=== PATIENT | female | born 1980 | race Asian ===

== ENCOUNTER 2020-02-21 11:34 | Day surgery (SDC) | payer BC ==
[2020-02-20 09:36] VITALS: BMI 18.0
[2020-02-21] MEDS ORDERED: ROCURONIUM BROMIDE 50 MG/5 ML SYRINGE ONE ×2 (12:57→15:18)
[2020-02-21] MEDS ORDERED: PROPOFOL 20 ML ONE (12:57)
[2020-02-21] MEDS ORDERED: fentaNYL CITRATE 250 MCG/5 ML VIAL ONE (12:57)
[2020-02-21] MEDS ORDERED: MIDAZOLAM HCL 2 MG/2 ML SINGLE DOSE VIAL ONE (12:57)
[2020-02-21] MEDS ORDERED: BUPIVACAINE HCL/PF 2.5 MG/ML - 30 ML VIAL IJ ONE (13:06)
[2020-02-21] MEDS ORDERED: SODIUM CHLORIDE 0.9% P/F 10 ML VIAL IJ ONE (13:06)
[2020-02-21] MEDS ORDERED: BUPIVACAINE LIPOSOME/PF (EXPAREL) 266 MG/20 ML VIAL ONE (13:06)
[2020-02-21] MEDS ORDERED: ceFAZolin SODIUM 1 GM VIAL ONE ×3 (13:50→16:55)
[2020-02-21] MEDS ORDERED: DEXAMETHASONE SOD PHOSPHATE 4 MG/1 ML VIAL ONE (13:50)
[2020-02-21] MEDS ORDERED: ONDANSETRON 4 MG/2 ML VIAL ONE ×2 (13:50→17:50)
[2020-02-21] MEDS ORDERED: HYDROmorphone HCL/PF 1 MG/ML VIAL ONE (13:56)
[2020-02-21] MEDS ORDERED: GENTAMICIN SO4 80 MG/2 ML VIAL ONE ×2 (14:01→16:55)
[2020-02-21] MEDS ORDERED: ZOLPIDEM TARTRATE 5 MG TABLET PO PRN (15:34)
[2020-02-21] MEDS ORDERED: ACETAMINOPHEN 325 MG TABLET (FP) PO PRN (15:34)
[2020-02-21] MEDS ORDERED: ePHEDrine SULFATE 50 MG/1 ML AMPULE ONE (16:05)
[2020-02-21] MEDS ORDERED: NITROGLYCERIN 2% OINTMENT - 1GM PACKET TD ONE (18:06)
[2020-02-21] MEDS ORDERED: NEOSTIGMINE METHYLSULFATE 0.5 MG/ML - 10 ML MDV ONE (18:10)
[2020-02-21] MEDS ORDERED: ONDANSETRON 4 MG/2 ML VIAL IVPUSH PRN (18:29)
[2020-02-21] MEDS ORDERED: PROMETHAZINE HCL 25 MG/1 ML VIAL IVPUSH PRN (18:29)
[2020-02-21] MEDS ORDERED: LACTATED RINGERS SOLUTION 1,000 ML IV SCH (18:30)
[2020-02-21] MEDS: ACETAMINOPHEN 1000 MG/100 ML VIAL (NON FORMULARY) IVPB ONE (19:00)
[2020-02-21] MEDS ORDERED: ACETAMINOPHEN INJECTION 100 ML IVPB ONE (19:02)
[2020-02-21] MEDS: CEFAZOLIN 1 GM/D5W 1 GM/50 ML BAG IVPB SCH (20:30)
[2020-02-21] MEDS: DEXTROSE 5%-0.45% SALINE 1,000 ML IV SCH (20:31)
[2020-02-22] MEDS: CEFAZOLIN 1 GM/D5W 1 GM/50 ML BAG IVPB SCH ×3 (01:22→14:45)
[2020-02-22] MEDS: oxyCODONE HCL 5 MG TABLET PO PRN ×2 (01:59→06:18)
[2020-02-22] MEDS: ONDANSETRON 4 MG/2 ML VIAL IVPUSH PRN ×2 (05:27→09:39)
[2020-02-22 07:41] LABS: HEMATOCRIT 29.2 % (32.4-45.2); HEMOGLOBIN 10.1 GM/dl (10.7-15.3); MCH 31.8 pg (25.7-33.7); MCHC 34.4 g/dl (32.0-36.0); MEAN CELL VOLUME 92.2 fl (80-96); MEAN PLT VOLUME 7.1 fl (7.5-11.1); PLATELET COUNT 293 K/MM3 (134-434); RBC 3.17 M/mm3 (3.60-5.2); RDW 11.6 % (11.6-15.6); WHITE BLOOD COUNT 10.1 K/mm3 (4.0-10.8)
[2020-02-22] MEDS: ACETAMINOPHEN 1000 MG/100 ML VIAL (NON FORMULARY) IVPB ONE (08:38)
[2020-02-22 14:04] VITALS: BP 108/73; PULSE 88; TEMP 99.3
[2020-02-22] MEDS: DEXTROSE 5%-0.45% SALINE 1,000 ML IV SCH (14:50)
== END 2020-02-22 16:12 | disposition home or self-care (01) ==
LOC: FASUSAT 11:34 → EDSTATUS 13:00 → FM/S 19:41 → FASUSAT 02-22 16:12
PROVIDERS: ATTEND Surgery Surgical Oncology
PROC: 0HTV0ZZ Resection of Bilateral Breast, Open Approach (ICD-10-PCS; principal; 2020-02-21 13:42)
PROC: 0HRV0JZ Replacement of Bilateral Breast with Synthetic Substitute, Open Approach (ICD-10-PCS; 2020-02-21 13:42)
DX: Z15.01 Genetic susceptibility to malignant neoplasm of breast (principal); Z80.3 Family history of malignant neoplasm of breast; Z90.13 Acquired absence of bilateral breasts and nipples
CPT/HCPCS: 36415; 84703; 85027; 88307-TC; 88331-TC; 94760; J0131